=== PATIENT | male | born 2000 | race Caucasian/White ===

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

== ENCOUNTER 2024-11-15 11:24 | Outpatient (CLI) | payer OTHER, SELFPAY ==
--- NOTE | 2024-11-15 | DI.RAD_ITS ---
Exam(s) XR HIP RT COMPLETE AP PELVIS EXAM: XR HIP RT COMPLETE AP PELVIS CLINICAL HISTORY: Low back pain M54.50. TECHNIQUE: 2D digital imaging was performed. Two views COMPARISON: CR BILATERAL HIPS ADULT from 03/19/2018 FINDINGS: BONES: No acute fracture is present. No bony destructive lesion is seen. JOINTS: No dislocation present. SOFT TISSUE: Normal. IMPRESSION: No acute abnormality. DATA REPOSITORY: RADIATION DOSE DELIVERED:
--- NOTE | 2024-11-15 | DI.RAD_ITS ---
Exam(s) XR FOREARM RT XR ELBOW RT COMPLETE EXAM: XR FOREARM RT CLINICAL HISTORY: pain in rt forearm M79.631. TECHNIQUE: 2D digital imaging was performed. Two views of the forearm. Three views of the elbow COMPARISON: CR XR ELBOW RT COMPLETE from 11/15/2024 FINDINGS: BONES: No acute fracture is present. No bony destructive lesion is seen. The elbow and wrist joints a re unremarkable. SOFT TISSUE: Normal. IMPRESSION: Unremarkable radiographs of the forearm and right elbow. DATA REPOSITORY: RADIATION DOSE DELIVERED:
== END 2024-11-15 11:44 ==
LOC: DI 11:24
PROVIDERS: PCP Family Medicine; Visit Provider Nurse Practitioner Family
DX: M54.50 Low back pain, unspecified (principal); M79.631 Pain in right forearm
CPT/HCPCS: 73080; 73090; 73502